=== PATIENT | male | born 2000 | race Hispanic/Latino ===

== ENCOUNTER 2022-07-09 00:48 | Emergency (ER) | payer OTHER ==
[2022-07-09] MEDS ORDERED: cefTRIAXone (ROCEPHIN) 500 MG VIAL ONE (01:23)
[2022-07-09] MEDS ORDERED: Azithromycin 250 MG TAB ONE (01:23)
[2022-07-09] MEDS ORDERED: Lidocaine 1% (PF) 30 ML VIAL ONE (01:24)
[2022-07-09 22:14] LABS: Chlam.trachomatis by PCR,Urine Not Detected (NotDetected); GC N.gonorrhoeae PCR,UrineVOID Not Detected (NotDetected)
== END 2022-07-09 01:59 | disposition home or self-care (01) ==
LOC: CSHERS 00:48
DX: K62.89 Other specified diseases of anus and rectum (principal)
CPT/HCPCS: 87491; 87591; 96372; 99283; J0696; J2001

== ENCOUNTER 2023-03-23 15:10 | Emergency (ER) | payer OTHER, SELFPAY ==
[2023-03-23] MEDS ORDERED: cefTRIAXone (ROCEPHIN) 500 MG VIAL ONE (16:47)
[2023-03-23] MEDS ORDERED: Sterile Water 10 ML ONE (16:48)
== END 2023-03-23 18:16 | disposition home or self-care (01) ==
LOC: CSHERS 15:10
DX: K62.89 Other specified diseases of anus and rectum (principal); Z11.3 Encounter for screening for infections with a predominantly sexual mode of transmission
CPT/HCPCS: 87252; 96372; 99283; J0696